=== PATIENT | male | born 1965 | race Caucasian/White ===

== ENCOUNTER 2023-09-24 14:02 | Emergency (ER) | payer BC, SELFPAY ==
[2023-09-24 14:07] VITALS: BP 135/87; PULSE 61; RESP 16; TEMP 36.6; O2SAT 99
[2023-09-24 14:19] VITALS: BP 135/87; PULSE 61; RESP 16; TEMP 36.6; O2SAT 99
--- NOTE | 2023-09-24 14:19 | ED.GENADUL_ITS ---
Discharge Plan Disposition Patient Disposition: Home Condition: Stable Discharge Details Clinical Impression: Bursitis, olecranon ED Provider: Florencio Olson Home Meds and New Rx's Prescriptions: New sulfamethoxazole-trimethoprim [Bactrim DS] 800-160 mg tablet 1 tab PO BID Qty: 28 0RF amoxicillin-pot clavulanate 875-125 mg tablet 1 tab PO BID Qty: 28 0RF Continued lorazepam [Ativan] 1 mg tablet 1 mg PO DAILY PRN cyclobenzaprine 10 mg tablet 10 mg PO DAILY PRN Discharge Instructions Additional Instructions: Your bursa which is a component of all the joints in the body is inflamed. It is common to get this in the elbow. Pain to keep it compressed with the Avinash wrap can help it resolve quicker. Take the antibiotics as prescribed and if not better within 2 weeks follow-up with your primary care provider If you feel more ill or have new symptoms such as high fevers return to the emergency department for reevaluation HPI General Mode of arrival: ambulatory . Date/Time Provider Initiated Documentation: 09/24/23 14:04 . Limitations to Documentation: no limitations . Information obtained by: patient . History of Present Illness 58 year old M presents to the emergency department with the chief complaint of left elbow swelling, described as moderate, Quality is described as aching, Patient started experiencing this day(s) (1) and it has been constant. No relieving factors improve symptom(s), No exacerbating factors reported . Patient notes no other symptoms.; denies fever/chills. Patient did receive the following treatments prior to arrival, none Related Data Home Medications Medication Instructions Recorded Confirmed amoxicillin 875 mg-potassium 1 tab PO BID #28 tabs 09/24/23 clavulanate 125 mg tablet cyclobenzaprine 10 mg tablet 10 mg PO DAILY PRN 09/24/23 09/24/23 lorazepam 1 mg tablet (Ativan) 1 mg PO DAILY PRN 09/24/23 09/24/23 sulfamethoxazole 800 1 tab PO BID #28 tabs 09/24/23 mg-trimethoprim 160 mg tablet (Bactrim DS) Previous Rx's Medication Instructions Recorded amoxicillin 875 mg-potassium 1 tab PO BID #28 tabs 09/24/23 clavulanate 125 mg tablet sulfamethoxazole 800 1 tab PO BID #28 tabs 06/28/24 mg-trimethoprim 160 mg tablet (Bactrim DS) Allergies Allergy/AdvReac Type Severity Reaction Status Date / Time prednisone AdvReac Intermediate Psychosis Uncoded 09/24/23 14:10 General Stated Complaint: Cellulitis ERMA: 3 Review of Systems All systems reviewed & are unremarkable except as noted in HPI and below Constitutional Constitutional: Denies chills, Denies fever(s) and Denies weakness Cardiovascular Cardiovascular: Denies chest pain and Denies dyspnea Respiratory Respiratory: Denies cough and Denies dyspnea Gastrointestinal Gastrointestinal: Denies abdominal pain, Denies nausea and Denies vomiting Genitourinary Genitourinary: Denies dysuria Musculoskeletal Musculoskeletal: Reports joint swelling Neurologic Neurologic: Denies weakness Exam Const General: no acute distress Orientation: alert HENAK Head: normal to inspection Ears: external ears normal General nose exam: external nose normal Mouth: moist mucous membranes Eyes General: appearance normal, both eyes and all related structures Neck Neck: normal visual inspection Resp Effort & Inspection: normal respiratory effort and able to speak in complete sentences Cardio Rate: regular rate Skin General skin exam: no rashes or lesions noted Neuro General: patient alert Extrem General: full ROM and capillary refill normal Psych Mental Status: mental status grossly normal Course Vital Signs Vital signs: Vital Signs Temperature 36.6 C 09/24/23 14:07 Pulse 61 09/24/23 14:07 Respiratory Rate 16 09/24/23 14:07 Blood Pressure 135/87 09/24/23 14:07 Pulse Oximetry 99 09/24/23 14:07 Temperature 36.6 C 09/24/23 14:07 Pulse 61 09/24/23 14:07 Respiratory Rate 16 09/24/23 14:07 Respiratory Effort Normal, Non-Labored 09/24/23 14:09 Blood Pressure 135/87 09/24/23 14:07 Blood Pressure Position Sitting 09/24/23 14:07 Pulse Oximetry 99 09/24/23 14:07 Oxygen Delivery Method Room Air 09/24/23 14:07 Oxygen Flow Rate 0 09/24/23 14:07 Pain Level 0 09/24/23 14:07 Medical Decision Making 58-year-old male who denies any significant chronic medical history comes in with left elbow swelling. He says he has not had any trauma to the area, had some discomfort earlier this morning and then started getting swollen. He denies any fevers, chills. He is speaking clearly on exam in no distress. He has a swollen left olecranon bursa, the joint of the elbow itself is not swollen. There is very mild erythema on the lateral surface of the bursa, no significant warmth or crepitus or tenderness. Full range of motion of the elbow. Intact distal sensation and pulses. Exam consistent with olecranon bursitis, less likely septic bursitis but will initiate oral antibiotics to treat this. Will also have him apply an Avinash wrap. Advised to follow-up with his PCP if not resolved within 2 weeks and return precautions given Differential Diagnosis Differential Diagnosis: Olecranon bursitis, septic bursitis Quality:SDOH Health Related Social Needs: No Data to Display PFSH All Active Problems (Updated 09/24/23 @ 14:22 by Florencio Olson MD) Bursitis, olecranon (Acute) Social History Smoking/Tobacco Use Status: Never Smoking risk assessment performed?: Yes Alcohol Intake: current Alcohol Intake frequency: 0-2 drinks per day Alcohol type: beer Drug use: Daily Substance use type: marijuana
[2023-09-24] MEDS: Amoxicillin 875/Clav. 125 TAB PO (14:33)
[2023-09-24] MEDS: Sulfameth/Trimeth DS TAB 1 TAB PO (14:33)
== END 2023-09-24 14:33 | disposition home or self-care (01) ==
LOC: ER 14:55
PROVIDERS: Emergency Provider Emergency Medicine
DX: M25.522 Pain in left elbow (principal); M70.22 Olecranon bursitis, left elbow
CPT/HCPCS: 99283

== ENCOUNTER 2023-09-30 15:24 | Emergency (ER) | payer BC, SELFPAY ==
[2023-09-30 15:28] VITALS: BP 130/90; PULSE 86; RESP 18; TEMP 36.4; O2SAT 98
[2023-09-30 16:06] LABS: Bilirubin Negative (Negative); Blood Negative (Negative); Clarity Sl Cloudy (Clear); Glucose Negative (Negative); Ketones Negative (Negative); Leukocyte Esterase Negative (Negative); Nitrite Negative (Negative); Specific Gravity >= 1.030 (1.005-1.025); Urobilinogen 0.2 mg/dL (Up to 0.2); pH 5.5 (5-8)
[2023-09-30 16:13] LABS: Epithelial Cells Rare HPF (Negative); RBC Negative HPF (0-2)
[2023-09-30 16:14] LABS: Bacteria Negative HPF (Negative); C & S Indicated? No; Casts 3-5 Fine Granular LPF (Negative); Crystals Negative HPF (Negative); Mucus Moderate (Negative)
[2023-09-30 16:19] VITALS: O2SAT 97
[2023-09-30] MEDS: Ondansetron 4 MG/2 ML VIAL IVP (16:21)
[2023-09-30] MEDS: Normal Saline 1,000 ML 1000 ML IV ×3 (16:21→18:36)
[2023-09-30 16:31] LABS: Abs Immature Grans 0.01 10^3/uL (0.0-0.06); Absolute Basophil Count 0.02 10^3/uL (0.0-0.2); Absolute Lymphocyte Count 1.01 10^3/uL (1.2-3.4); Absolute Monocyte Count 0.78 10^3/uL (0.1-0.8); Absolute Neutrophil Count 1.57 10^3/uL (1.2-6.7); Basophils % 0.6 %; HCT 48.4 % (40.0-50.0); HGB 17.1 g/dL (13.5-17.5); Immature Grans % 0.3 %; Lymphocytes % 29.8 %; MCH 30.5 pg (27.0-33.0); MCHC 35.3 % (32.0-36.0); MCV 86 fL (80-95); MPV 9.4 fL (8.0-11.0); Neutrophils % 46.3 %; Platelet Count 193 10^3/uL (130-400); RDW 11.9 % (11.8-14.1); RDW-SD 37.7 fL; WBC 3.39 10^3/uL (4.4-10.8)
[2023-09-30 16:38] LABS: COVID-19 PCR Negative (Negative); Influenza A PCR Negative (Negative); Influenza B PCR Negative (Negative); RSV PCR Negative (Negative)
[2023-09-30 16:39] LABS: ALT 27 U/L (16-63); AST 31 U/L (15-37); Albumin 4.4 g/dL (3.4-5.0); Alkaline Phosphatase 97 U/L (46-116); Anion Gap 15.7 mmol/L (3-11); BUN 26 mg/dL (7-18); Bilirubin, Total 0.51 mg/dL (0.2-1.0); C-Reactive Protein 1.04 mg/dL (<or=0.5); CO2 19.3 mmol/L (21.0-32.0); CREATININE 1.6 mg/dL (0.70-1.30); Calcium 8.5 mg/dL (8.5-10.1); Chloride 96 mmol/L (98-107); Estimated GFR 49.63 (mL/min/1.73m2); Glucose 139 mg/dL (74-106); Potassium 3.9 mmol/L (3.5-5.1); Sodium 131 mmol/L (136-145); Total Protein 8.4 g/dL (6.4-8.2)
[2023-09-30 16:40] LABS: Source NASOPHARYNX
[2023-09-30] MEDS: ACETAMINOPHEN 1,000 MG/100 ML BTL 400 MG IVPB (16:42)
[2023-09-30] MEDS: Prochlorperazine 10 MG/2 ML VIAL 5 MG IVP (17:32)
[2023-09-30 17:49] LABS: Creatine Kinase 105 U/L (39-308)
[2023-09-30 19:27] LABS: Anion Gap 10.2 mmol/L (3-11); BUN 23 mg/dL (7-18); CO2 20.8 mmol/L (21.0-32.0); CREATININE 1.2 mg/dL (0.70-1.30); Chloride 104 mmol/L (98-107); Glucose 103 mg/dL (74-106); Potassium 3.6 mmol/L (3.5-5.1); Sodium 135 mmol/L (136-145)
[2023-09-30 19:59] VITALS: BP 146/79; PULSE 54; RESP 16; TEMP 36.3; O2SAT 98
[2023-09-30] MEDS: Prochlorperazine 10 MG TAB PO (19:59)
--- NOTE | 2023-09-30 20:37 | ED.GENADUL_ITS ---
Discharge Plan Disposition Patient Disposition: Home Condition: Stable Discharge Details Clinical Impression: Bursitis, olecranon, Nausea & vomiting, Hypocalcemia Primary Care Provider: Unknown,Unknown ED Provider: Carolyn Hancock Home Meds and New Rx's Prescriptions: New calcium carbonate-vitamin D3 [Calcium 500 + D] 500 mg-10 mcg (400 unit) tablet 2 tab PO DAILY Qty: 20 0RF prochlorperazine maleate [Compazine] 10 mg tablet 10 mg PO Q8H PRNQty: 10 0RF Continued lorazepam [Ativan] 1 mg tablet 1 mg PO DAILY PRN cyclobenzaprine 10 mg tablet 10 mg PO DAILY PRN sulfamethoxazole-trimethoprim [Bactrim DS] 800-160 mg tablet 1 tab PO BID Qty: 28 0RF amoxicillin-pot clavulanate 875-125 mg tablet 1 tab PO BID Qty: 28 0RF Discharge Instructions Instructions: Hypocalcemia (DC), Bursitis ED, Nausea and vomiting in adults Additional Instructions: Take the calcium supplement as supplied Take Compazine as needed for nausea and vomiting At least eight 8 ounce glasses of water daily, you may take Gatorade, bland diet as tolerated Return earlier should you have new or worsening complaints recheck with your doctor this week, discontinue both antibiotics as you do not need them HPI General Date/Time Provider Initiated Documentation: 09/30/23 15:35 . HPI Narrative: This 58-year-old male presents with reports of recent diagnosis of possible septic bursitis placed on Augmentin and Bactrim last week. Has been taking these meds intermittently for the past several days but stopped on Wednesday secondary to nausea vomiting and diarrhea. Patient states initially prior to onset of the swelling to his left shoulder he had a fever of 102 which is since resolved. He presents today secondary to having abdominal discomfort and persistent nausea and vomiting. Denies any diarrhea today or blood in vomitus. Denies any illicit drug use. Denies any headache known spoiled food. Related Data Home Medications Medication Instructions Recorded Confirmed amoxicillin 875 mg-potassium 1 tab PO BID #28 tabs 09/24/23 09/30/23 clavulanate 125 mg tablet cyclobenzaprine 10 mg tablet 10 mg PO DAILY PRN 09/24/23 09/30/23 lorazepam 1 mg tablet (Ativan) 1 mg PO DAILY PRN 09/24/23 09/30/23 sulfamethoxazole 800 1 tab PO BID #28 tabs 09/24/23 09/30/23 mg-trimethoprim 160 mg tablet (Bactrim DS) calcium carbonate 500 mg-vitamin 2 tab PO DAILY #20 tabs 09/30/23 D3 10 mcg (400 unit) tablet (Calcium 500 + D) prochlorperazine maleate 10 mg 10 mg PO Q8H PRN #10 tabs 09/30/23 tablet (Compazine) Previous Rx's Medication Instructions Recorded amoxicillin 875 mg-potassium 1 tab PO BID #28 tabs 09/24/23 clavulanate 125 mg tablet sulfamethoxazole 800 1 tab PO BID #28 tabs 09/24/23 mg-trimethoprim 160 mg tablet (Bactrim DS) calcium carbonate 500 mg-vitamin 2 tab PO DAILY #20 tabs 09/30/23 D3 10 mcg (400 unit) tablet (Calcium 500 + D) prochlorperazine maleate 10 mg 10 mg PO Q8H PRN #10 tabs 09/30/23 tablet (Compazine) Allergies Allergy/AdvReac Type Severity Reaction Status Date / Time prednisone AdvReac Intermediate Psychosis Uncoded 09/30/23 15:35 General Stated Complaint: Nausea/Vomit/Diar ERMA: 3 Exam Narrative Exam Narrative: Alert and oriented 58-year-old gentleman, no scleral icterus, moist mucous membranes, uvula midline, no respiratory distress, cardiac rate rhythm regular, no abdominal tenderness, left elbow with evidence of bursitis without any erythema or crepitus, range of motion of left elbow intact, no lymphangitis Course Vital Signs Vital signs: Vital Signs Temperature 36.4 C L 09/30/23 15:28 Pulse 86 09/30/23 15:28 Respiratory Rate 18 09/30/23 15:28 Blood Pressure 130/90 09/30/23 15:28 Pulse Oximetry 98 09/30/23 15:28 Temperature 36.3 C L 09/30/23 19:59 Temperature Source Tympanic 09/30/23 19:59 Pulse 54 L 09/30/23 19:59 Respiratory Rate 16 09/30/23 19:59 Respiratory Effort Normal, Non-Labored 09/30/23 15:35 Blood Pressure 146/79 H 09/30/23 19:59 Blood Pressure Position Sitting 07/04/24 15:28 Pulse Oximetry 98 09/30/23 19:59 Oxygen Delivery Method Room Air 09/30/23 19:59 Oxygen Flow Rate 0 09/30/23 19:59 Pain Level 0 09/30/23 19:59 Comment abd cramping/nausea 09/30/23 16:19 Lab/Test Results Lab/Test Results: Laboratory Tests Range/Units 09/30/23 09/30/23 09/30/23 15:50 15:55 16:16 WBC (4.4-10.8) 10^3/uL 3.39 L RBC (4.36-5.78) 10^6/uL 5.60 Hgb (13.5-17.5) g/dL 17.1 Hct (40.0-50.0) % 48.4 MCV (80-95) fL 86 MCH (27.0-33.0) pg 30.5 MCHC (32.0-36.0) % 35.3 RDW (11.8-14.1) % 11.9 Plt Count (130-400) 10^3/uL 193 MPV (8.0-11.0) fL 9.4 Immature Gran % % 0.3 Neutrophils % % 46.3 Lymphocytes % % 29.8 Monocytes % % 23.0 Eosinophils % % 0.0 Basophils % % 0.6 Nucleated RBC % (0.0-0.3) % 0.0 Absolute Neutrophils (1.2-6.7) 10^3/uL 1.57 Absolute Lymphocytes (1.2-3.4) 10^3/uL 1.01 L Absolute Monocytes (0.1-0.8) 10^3/uL 0.78 Absolute Eosinophils (0.0-0.7) 10^3/uL 0.00 Absolute Basophils (0.0-0.2) 10^3/uL 0.02 Sodium (136-145) mmol/L 131 L Potassium (3.5-5.1) mmol/L 3.9 Chloride (98-107) mmol/L 96 L Carbon Dioxide (21.0-32.0) mmol/L 19.3 L Anion Gap (3-11) mmol/L 15.7 H BUN (7-18) mg/dL 26 H Creatinine (0.70-1.30) mg/dL 1.6 H Est GFR (CKD-EPI 2020) (mL/min/1.73m2) 49.63 Glucose (74-106) mg/dL 139 H Calcium (8.5-10.1) mg/dL 8.5 Total Bilirubin (0.2-1.0) mg/dL 0.51 AST (15-37) U/L 31 ALT (16-63) U/L 27 Alkaline Phosphatase (46-116) U/L 97 Creatine Kinase (39-308) U/L 105 C-Reactive Protein (<or=0.5) mg/dL 1.04 H Total Protein (6.4-8.2) g/dL 8.4 H Albumin (3.4-5.0) g/dL 4.4 Urine Color (Yellow) Yellow Urine Clarity (Clear) Sl Cloudy Urine pH (5-8) 5.5 Ur Specific [place] (1.005-1.025) >= 1.030 H Urine Protein (Neg-Trace) mg/dL 100 H Urine Ketones (Negative) mg/dL Negative Urine Blood (Negative) Negative Urine Nitrite (Negative) Negative Urine Bilirubin (Negative) Negative Urine Urobilinogen (Up to 0.2) mg/dL 0.2 Ur Leukocyte Esterase (Negative) Negative Urine RBC (0-2) HPF Negative Urine WBC (0-5) HPF 3-5 Ur Epithelial Cells (Negative) HPF Rare Urine Crystals (Negative) HPF Negative Urine Bacteria (Negative) HPF Negative Urine Casts (Negative) LPF 3-5 Fine Granular Urine Mucus (Negative) Moderate Ur Culture Indicated? No Urine Glucose (Negative) mg/dL Negative COVID-19 Source NASOPHARYNX SARS-CoV-2 (PCR) (Negative) Negative Influenza Type A (PCR) (Negative) Negative Influenza Type B (PCR) (Negative) Negative RSV (PCR) (Negative) Negative Range/Units 09/30/23 09/30/23 18:55 19:14 WBC (4.4-10.8) 10^3/uL RBC (4.36-5.78) 10^6/uL Hgb (13.5-17.5) g/dL Hct (40.0-50.0) % MCV (80-95) fL MCH (27.0-33.0) pg MCHC (32.0-36.0) % RDW (11.8-14.1) % Plt Count (130-400) 10^3/uL MPV (8.0-11.0) fL Immature Gran % % Neutrophils % % Lymphocytes % % Monocytes % % Eosinophils % % Basophils % % Nucleated RBC % (0.0-0.3) % Absolute Neutrophils (1.2-6.7) 10^3/uL Absolute Lymphocytes (1.2-3.4) 10^3/uL Absolute Monocytes (0.1-0.8) 10^3/uL Absolute Eosinophils (0.0-0.7) 10^3/uL Absolute Basophils (0.0-0.2) 10^3/uL Sodium (136-145) mmol/L Cancelled 135 L Potassium (3.5-5.1) mmol/L Cancelled 3.6 Chloride (98-107) mmol/L Cancelled 104 Carbon Dioxide (21.0-32.0) mmol/L Cancelled 20.8 L Anion Gap (3-11) mmol/L Cancelled 10.2 BUN (7-18) mg/dL Cancelled 23 H Creatinine (0.70-1.30) mg/dL Cancelled 1.2 Est GFR (CKD-EPI 2020) (mL/min/1.73m2) Cancelled 70.10 Glucose (74-106) mg/dL Cancelled 103 Calcium (8.5-10.1) mg/dL Cancelled 7.0 L Total Bilirubin (0.2-1.0) mg/dL AST (15-37) U/L ALT (16-63) U/L Alkaline Phosphatase (46-116) U/L Creatine Kinase (39-308) U/L C-Reactive Protein (<or=0.5) mg/dL Total Protein (6.4-8.2) g/dL Albumin (3.4-5.0) g/dL Urine Color (Yellow) Urine Clarity (Clear) Urine pH (5-8) Ur Specific [place] (1.005-1.025) Urine Protein (Neg-Trace) mg/dL Urine Ketones (Negative) mg/dL Urine Blood (Negative) Urine Nitrite (Negative) Urine Bilirubin (Negative) Urine Urobilinogen (Up to 0.2) mg/dL Ur Leukocyte Esterase (Negative) Urine RBC (0-2) HPF Urine WBC (0-5) HPF Ur Epithelial Cells (Negative) HPF Urine Crystals (Negative) HPF Urine Bacteria (Negative) HPF Urine Casts (Negative) LPF Urine Mucus (Negative) Ur Culture Indicated? Urine Glucose (Negative) mg/dL COVID-19 Source SARS-CoV-2 (PCR) (Negative) Influenza Type A (PCR) (Negative) Influenza Type B (PCR) (Negative) RSV (PCR) (Negative) Medical Decision Making 58-year-old male with nausea vomiting and diarrhea with recent diagnosis of possible septic bursitis currently taking antibiotics. Out of concern for dehydration I did order diagnostic labs with a creatinine of 1.7, improved to 1.2 after 3 L of fluids, BUN of 23, CO2 improved to 20.8 from 19, mild hypocalcemia at 7, will initiate calcium supplementation. Patient reports marked improvement of pain, and he is able to tolerate p.o. at time of reassessment and in no acute distress. I will discontinue both the Augmentin and the Bactrim at this time. There is no evidence of septic bursitis and patient has not taken these medications since Wednesday. Urinalysis is reassuring, tick panel is pending at this time. Return precautions reviewed and patient expressed understanding. Electrolytes are within normal limits and COVID test is negative. Suspect viral syndrome in conjunction with the antibiotic usage. Quality:SDOH Health Related Social Needs: No Data to Display PFSH All Active Problems (Updated 09/30/23 @ 19:46 by AKSHAT Acevedo) Hypocalcemia (Acute) Nausea & vomiting (Acute) Bursitis, olecranon (Acute) Bursitis, olecranon (Acute) Social History Smoking/Tobacco Use Status: Never Smoking risk assessment performed?: Yes Alcohol Intake: current Alcohol Intake frequency: a few times a month Alcohol type: beer Drug use: Occasionally Substance use type: marijuana Housing: house Do you feel safe at home: Yes Do you feel safe in your relationship?: Yes
[2023-10-04 13:04] LABS: Lyme Ab w Rflx to Lyme Confirm Positive (Negative)
[2023-10-04 15:46] LABS: Lyme IgG Ab Positive (Negative); Lyme IgM Ab Negative (Negative)
[2023-10-04 23:05] LABS: Anaplasma phagocytophilum Negative (Negative); B. miyamotoi PCR Negative (Negative); Babesia divergens/MO-1 Negative (Negative); Babesia duncani Negative (Negative); Babesia microti Negative (Negative); Ehrlichia chaffeensis Negative (Negative); Ehrlichia ewingii/canis Negative (Negative); Ehrlichia muris eauclairensis Negative (Negative)
== END 2023-09-30 20:01 | disposition home or self-care (01) ==
PROVIDERS: Emergency Provider Physician Assistant
DX: M70.22 Olecranon bursitis, left elbow (principal); R11.2 Nausea with vomiting, unspecified; E83.51 Hypocalcemia
CPT/HCPCS: 36415; 80048; 80053; 82550; 86617; 87637; 87798; 96361; 96365; 96366; 96375; 99284; 81003; 81015; 85025; 86140; 86618; J0131; J0780; J2405

== ENCOUNTER 2024-04-20 18:49 | Outpatient (CLI) | payer BC, SELFPAY ==
--- NOTE | 2024-04-20 | DI.RAD_ITS ---
Exam(s) XR WRIST LT COMPLETE EXAM: XR WRIST LT COMPLETE CLINICAL HISTORY: M25.532 Pain in left wrist. TECHNIQUE: 2D digital imaging was performed. Three views. COMPARISON: No exams were available for comparison FINDINGS: BONES: No acute fracture is present. No bony destructive lesion is seen. JOINTS: The carpal bones are normally aligned. Mild degenerative changes in the carpal region. SOFT TISSUE: Normal. IMPRESSION: No acute abnormality. DATA REPOSITORY: RADIATION DOSE DELIVERED:
--- NOTE | 2024-04-20 17:38 | DI.VRAD_ITS ---
PROCEDURE INFORMATION: Exam: XR Left Wrist Exam date and time: 04/20/2024 5:02 PM Age: 58 years old Clinical indication: Pain; Wrist; Left TECHNIQUE: Imaging protocol: Radiologic exam of the left wrist. Views: 3 or more views. Total images: 8 COMPARISON: No relevant prior studies available. FINDINGS: Bones/joints: No bony or joint space abnormality. No fracture. No dislocation. Soft tissues: Unremarkable. IMPRESSION: No acute findings. Dictated and Authenticated by: Kb Calhoun MD. Ordering:LEIDA Reyes MD
== END 2024-04-20 19:09 ==
LOC: DI 18:49
PROVIDERS: Visit Provider Student in an Organized Health Care Education/Training Program
DX: M25.532 Pain in left wrist (principal)
CPT/HCPCS: 73110

== ENCOUNTER 2024-05-22 00:49 | Outpatient (CLI) | payer BC, SELFPAY ==
--- NOTE | 2024-05-22 | DI.MRI_ITS ---
Exam(s) MR UPPER JOINT LT WO EXAM: MR UPPER JOINT LT WO CLINICAL HISTORY: M25.532 Pain in left wrist. TECHNIQUE: Multiplanar multisequence MRI was performed. COMPARISON: Plain films April 22 FINDINGS: BONES: There is no discrete fracture. There is edema at the proximal portion of the navicular is wel l as lunate and adjacent portion of the hamate. Mild edema is noted in the capitate. Findings may c ould be posttraumatic possibly degenerative. JOINTS: The radiocarpal joint is unremarkable. The carpal joints are unremarkable. Small amount o f fluid is noted around in navicular. TENDONS: Flexors: Unremarkable. Extensors: Unremarkable. MUSCLES: Unremarkable. MEDIAN NERVE: Unremarkable on this noncontrast examination. SOFT TISSUES: Unremarkable. LIGAMENTS: Scapholunate ligament appears intact. TRIANGULAR FIBROCARTILAGE: Unremarkable. OTHER: IMPRESSION: Mild marrow edema could be posttraumatic versus degenerative. No discrete fracture or tendon abnorma lity. DATA REPOSITORY:
== END 2024-05-22 01:09 ==
PROVIDERS: Visit Provider Student in an Organized Health Care Education/Training Program
DX: M25.532 Pain in left wrist (principal)
CPT/HCPCS: 73221

== ENCOUNTER 2024-07-31 23:13 | Emergency (ER) | payer BC, SELFPAY ==
--- NOTE | 2024-07-31 23:15 | RT.EKG_ITS ---
APPROVED REPORT Exam: Resting ECG Reason for Exam: L shoulder down arm pain Patient Location: E HR:57 bpm ECG Measurements Heart Rate 57 AXIS AR 165 P 48 QRSd 119 QRS 78 QT 422 T 70 QTc 412 Conclusion Sinus bradycardia...rate< 60 Nonspecific intraventricular conduction delay...QRSd >115mS, not LBBB/RBBB Borderline ST elevation, anterior leads...ST >0.15mV in V1-V4 Physician: no stemi
[2024-07-31 23:16] VITALS: BP 167/87; PULSE 65; RESP 18; TEMP 36.4; O2SAT 100
[2024-07-31 23:30] VITALS: RESP 18
--- NOTE | 2024-07-31 23:37 | W.ED.GENAD ---
Discharge Plan Disposition Patient Disposition: Home Condition: Good Discharge Details Clinical Impression: Muscle spasm of left shoulder Primary Care Provider: Murtaza Radford ED Provider: Jet Albrecht Home Meds and New Rx's Prescriptions: No Action cyclobenzaprine 10 mg tablet 10 mg PO DAILY PRN lorazepam [Ativan] 2 mg tablet 2 mg PO DAILY PRN Discharge Instructions Instructions: Muscle Spasm ED Additional Instructions: At this time your EKG and shoulder x-ray showed no significant abnormalities. Your symptoms appear to be consistent with a muscle spasm, and that has thankfully resolved. [facility] your scheduled [facility] today. Please continue to take Tylenol and Motrin as needed for pain, use your muscle relaxant as home as needed. If you notice any worsening of your symptoms, or any new symptoms such as vomiting, diarrhea, fever, chills, shortness of breath, chest pain, numbness, weakness, or fainting , please return immediately to the emergency department for reevaluation. Please follow up with your primary care provider as soon as possible for reassessment and reevaluation. As always, it was a pleasure participating in your medical care today. Referrals: Murtaza Radford [Primary Care Provider] - [facility] General Date/Time Provider Initiated Documentation: 07/31/24 23:15. HPI Narrative: This is a pleasant 58-year-old male with a past medical history of a crush injury to the left wrist and subsequent scapholunate dislocation of the left wrist status post Colby capsulodesis and SL repair who presents today for pain. Patient is scheduled to have his splint removed tomorrow. He states that he will occasionally get spasms in his left back that then radiate to the left shoulder and down his arm. Normally he takes Flexeril and this resolves the pain. Is states that yesterday he woke up and his arm was somewhat torqued in an atypical rotational position underneath him. Since then he has had the spasm in his scapula which has been radiating around to his shoulder and down his arm. Pain has been notably worsening. He describes it as a achy burning stabbing sensation. He did take some Flexeril as well as Tylenol and Motrin without any significant improvement of his symptoms. He denies the pain originating or radiating up from his splint. He denies fever or chills. He denies shortness of breath. He denies any pleuritic chest pain. He denies any prior history of blood clot or DVT. No other complaints at this time. No other modifying factors. Related Data Home Medications ?Medication ?Instructions ?Recorded ?Confirmed cyclobenzaprine 10 mg tablet 10 mg PO DAILY PRN 09/24/23 07/31/24 lorazepam 2 mg tablet (Ativan) 2 mg PO DAILY PRN 07/31/24 07/31/24 Allergies Allergy/AdvReac Type Severity Reaction Status Date / Time prednisone AdvReac Intermediate Psychosis Uncoded 07/31/24 23:26 General Stated Complaint: GenMedical ERMA: 3 Exam Narrative Exam Narrative: 1.Const: Well-nourished, Well-developed, appearing stated age 2.Eyes: PERRL, no conjunctival injection, and symmetrical lids. 3.ENT: Atraumatic external nose and ears. Moist MM. Neck: Symmetric, trachea midline, No thyromegaly. 4.CVS: +S1/S2, Peripheral pulses 2+ and equal in all extremities. Brisk capillary refill in all extremities. 5.RESP: Unlabored respiratory effort. Clear to auscultation bilaterally. No wheezes rales or rhonchi 6.GI: Soft, Nontender/Nondistended, No hepatosplenomegaly. No guarding or rebound. 7.MSK: Splint is present on the left upper extremity. Splint appears mildly loose, no evidence of swelling in the forearm, or the hand. No evidence of clinical compartment syndrome. Sensation intact distally in all fingertips. Brisk capillary refill. Normal movement of all fingers. No viselike automobile tester sensation in the forearm. No focal tenderness in the left elbow, left shoulder has some generalized achiness, but no redness warmth or swelling. Left scapula demonstrates muscle spasm at the inferior scapular border right along the paraspinal musculature. Patient has good range of movement for the shoulder. 8.Skin: Warm, Dry. No rashes or lesions. 9.Neuro: nutritionist public health II-XII grossly intact. Sensation grossly intact, no focal neurologic deficits. 10.Psych: (AAO) x3. Appropriate mood and affect Course Vital Signs Vital signs: Vital Signs Temperature 36.4 C L 07/31/24 23:16 Pulse 65 07/31/24 23:16 Respiratory Rate 18 07/31/24 23:16 Blood Pressure 167/87 H 07/31/24 23:16 Pulse Oximetry 100 07/31/24 23:16 Temperature 36.4 C L 07/31/24 23:16 Temperature Source Temporal Artery Scan 07/31/24 23:16 Pulse 65 07/31/24 23:16 Respiratory Rate 18 07/31/24 23:30 Respiratory Effort Normal, Non-Labored 07/31/24 23:30 Respiratory Depth Normal 07/31/24 23:30 Respiratory Pattern Normal 07/31/24 23:30 Blood Pressure 167/87 H 07/31/24 23:16 Blood Pressure Position Sitting 07/31/24 23:16 Pulse Oximetry 100 07/31/24 23:16 Oxygen Delivery Method Room Air 07/31/24 23:16 Oxygen Flow Rate 0 07/31/24 23:16 Pain Level 9 07/31/24 23:16 Medical Decision Making This is a pleasant 58-year-old male with a past medical history of a crush injury to the left wrist and subsequent scapholunate dislocation of the left wrist status post Colby capsulodesis and SL repair who presents today for pain. Patient is scheduled to have his splint removed tomorrow. He states that he will occasionally get spasms in his left back that then radiate to the left shoulder and down his arm. Normally he takes Flexeril and this resolves the pain. Is states that yesterday he woke up and his arm was somewhat torqued in an atypical rotational position underneath him. Since then he has had the spasm in his scapula which has been radiating around to his shoulder and down his arm. Pain has been notably worsening. He describes it as a achy burning stabbing sensation. He did take some Flexeril as well as Tylenol and Motrin without any significant improvement of his symptoms. He denies the pain originating or radiating up from his splint. He denies fever or chills. He denies shortness of breath. He denies any pleuritic chest pain. He denies any prior history of blood clot or DVT. No other complaints at this time. No other modifying factors. Splint is present on the left upper extremity. Splint appears mildly loose, no evidence of swelling in the forearm, or the hand. No evidence of clinical compartment syndrome. Sensation intact distally in all fingertips. Brisk capillary refill. Normal movement of all fingers. No viselike automobile tester sensation in the forearm. No focal tenderness in the left elbow, left shoulder has some generalized achiness, but no redness warmth or swelling. Left scapula demonstrates muscle spasm at the inferior scapular border right along the paraspinal musculature. Patient has good range of movement for the shoulder. He has no chest pain to suggest ACS. EKG is normal. No tearing or ripping sensation in the chest to suspect dissection. No vascular compromise, or capillary refill dysfunction to suggest dissection or compartment syndrome. No neurologic deficit focally to suggest intracranial etiology. No redness or warmth or fever to suggest infection. Concern for muscle spasm in his back bring about his symptoms as primary cause. No pleuritic chest pain to suggest pneumothorax. We will give IM Toradol, oral Tylenol, small dose of Valium for muscle relaxant and morphine. Will monitor closely get an x-ray and reassess. 3:37 AM Patient has complete resolution of his pain and symptoms. He is feeling much better. However the patient did drive himself, so he will need to continue to wait here until medication effectively has worn off and he demonstrates notable sobriety. Patient states that he feels well, but I would still prefer to observe the patient for an additional 3 hours. Patient will be allowed to continue to sleep here in the ED until the morning. 7 AM Patient is notably clinically sober, shows no signs of altered mental status from medication. He slept well, and feels well and would like to go home. Patient will be discharged home. I have extensively reviewed the treatment plan and discharge instructions with the patient. I have addressed all patient concerns at this time. The patient was made aware of what symptoms to monitor for that would warrant a return to the emergency department. Discussed the plan with the patient, they demonstrate verbal understanding and agreement with our assessment and plan at this time. The documentation in this chart was dictated using [email or web address] dictation software. Please excuse any dictation errors. FINDINGS: Bones/joints: Normal. Soft tissues: Normal. IMPRESSION: No acute findings. Thank you for allowing us to participate in the care of your patient. Dictated and Authenticated by: Sonia Brush MD 08/01/2024 12:40 AM Eastern Time ([place] & [place]) Quality:SDOH Health Related Social Needs: No Data to Display PFSH All Active Problems (Updated 08/01/24 @ 03:39 by Jet Albrecht DO) Muscle spasm of left shoulder (Acute) Left scapholunate ligament tear (Acute ~01/2024) Crushing injury of left wrist (Acute) Social History Smoking/Tobacco Use Status: Never Smoking risk assessment performed?: Yes Alcohol Intake: current Alcohol Intake frequency: a few times a month Alcohol type: beer Drug use: Occasionally Substance use type: marijuana Housing: house Do you feel safe at home: Yes Do you feel safe in your relationship?: Yes POCUS Exam (ED) Limited Vascular Exam DATE OF EXAM: 08/01/24 TIME OF EXAM: 01:38 PROVIDER THAT PERFORMED THE STUDY: Jet Albrecht IS THIS A REPEAT EXAM DURING THIS ENCOUNTER: No Vascular Exam: Left upper extremity REASON FOR EXAM: Left upper extremity pain (Pain) VISUALIZED STRUCTURES: Left axillary vein, Left basilic vein, Left brachial vein and Left cephalic vein PERTINENT FINDINGS/IMPRESSION: No apparent abnormalities Exam complete
--- NOTE | 2024-07-31 23:45 | DI.RAD_ITS ---
Exam(s) XR SHOULDER LT COMPLETE 2+V EXAM: XR SHOULDER LT COMPLETE 2+V CLINICAL HISTORY: left shoulder pain. TECHNIQUE: 2D digital imaging was performed. COMPARISON: No exams were available for comparison FINDINGS: Four views No evidence of acute fracture or dislocation or abnormal soft tissue calcifications. Subacromial spa ce height is within normal limits. There are no calcifications in the subacromial space. There are mild degenerative changes in the glenohumeral joint. AC joint appears unremarkable. Bone density no rmal. No significant osseous lesions. IMPRESSION: No acute osseous findings left shoulder. DATA REPOSITORY: RADIATION DOSE DELIVERED:
[2024-08-01] VITALS (54 sets, daily range): BP systolic 113–159; BP diastolic 69–100; PULSE 44–70; RESP 16; O2SAT 94–100
[2024-08-01] MEDS: MORPHine 4 MG/ML SYR IM (00:07)
[2024-08-01] MEDS: Ketorolac 30 MG/ML VIAL IM (00:07)
[2024-08-01] MEDS: Acetaminophen 500 MG TAB 1000 MG PO (00:08)
[2024-08-01] MEDS: diazePAM 5 MG TAB PO (00:08)
--- NOTE | 2024-08-01 00:40 | DI.VRAD_ITS ---
PROCEDURE INFORMATION: Exam: XR Left Shoulder Exam date and time: 08/01/2024 12:04 AM Age: 58 years old Clinical indication: Left; L shoulder pain TECHNIQUE: Imaging protocol: Radiologic exam of the left shoulder. Views: 2 or more views. COMPARISON: MR UPPER JOINT LT WO 05/22/2024 9:27 AM FINDINGS: Bones/joints: Normal. Soft tissues: Normal. IMPRESSION: No acute findings. Dictated and Authenticated by: Sonia Brush MD. Orderin Trena Chaudhary MD
== END 2024-08-01 06:58 | disposition home or self-care (01) ==
PROVIDERS: Emergency Provider Student in an Organized Health Care Education/Training Program; PCP Physician Assistant
DX: M62.838 Other muscle spasm (principal)
CPT/HCPCS: 99285; 99284; 36415; 96374; 96375; 93005; 93971; 73030; 93010; J1885; J2270